=== PATIENT | male | born 1970 | race Caucasian/White ===

== ENCOUNTER 2018-05-17 09:13 | Outpatient (CLI) | payer BC, SELFPAY ==
[2018-05-18 12:06] LABS: FSH 2.1 mIU/ml (1.4-18.1); LH 1.6 mIU/ml (2-9); PSA, Diagnostic 1.7 ng/ml (0-2.5); Prolactin 3.5 ng/ml (2.1-17.7)
[2018-05-19 12:08] LABS: Testosterone, Bioavailable 84 ng/dL (61-213); Testosterone, Total 311 ng/dL (240-950)
== END 2018-05-17 09:33 ==
PROVIDERS: PCP Family Medicine; Visit Provider Urology
DX: E29.1 Testicular hypofunction (principal); R97.20 Elevated prostate specific antigen [PSA]
CPT/HCPCS: 36415; 84403; 84410; 83001; 83002; 84146; 84153

== ENCOUNTER 2018-06-13 08:51 | Outpatient (CLI) | payer BC, SELFPAY ==
[2018-06-13 10:59] LABS: Cholesterol 220 mg/dL (50-200); Glucose 103 mg/dL (70-100); HDL Cholesterol 66 mg/dL (40-60); LDL CHOLESTEROL 139 mg/dL (<100); Triglyceride 59 mg/dL (30-150)
[2018-06-14 18:24] LABS: Tissue Transglutaminase Ab IgA <1.2 U/mL; Tissue Transglutaminase Ab IgG 3.2 U/mL
== END 2018-06-13 09:11 ==
PROVIDERS: PCP Family Medicine; Visit Provider Family Medicine
DX: Z13.220 Encounter for screening for lipoid disorders (principal); R10.9 Unspecified abdominal pain; Z13.1 Encounter for screening for diabetes mellitus
CPT/HCPCS: 36415; 80061; 82947; 83721; 83516

== ENCOUNTER 2018-08-29 01:50 | Outpatient (CLI) | payer BC, SELFPAY ==
[2018-09-01 05:33] LABS: Testosterone, Total 577 ng/dL (240-950)
== END 2018-08-29 02:10 ==
PROVIDERS: Nurse Practitioner Gerontology; PCP Family Medicine; Visit Provider Urology
DX: E29.1 Testicular hypofunction (principal)
CPT/HCPCS: 36415; 84403

== ENCOUNTER 2018-10-26 06:20 | Day surgery (SDC) | payer BC, SELFPAY ==
--- NOTE | 2018-10-26 05:53 | W.PM.ENDDOP ---
Date of service: 10/26/18 Time of Service: 08:37 Endoscopy Report DATE OF PROCEDURE: 10/26/18 PRE-OP DIAGNOSIS: Dyspepsia PROCEDURE: EGD with biopsies SURGEON: Kandi Khan ANESTHESIA: other (General/ ASA 2/Ayesha Schulz, MIYA) ESTIMATED BLOOD LOSS: 5 PATHOLOGY: other (Gastric bx, GE junction bx) COMPLICATIONS: None DISPOSITION: no change INDICATIONS: Mr. Llanos is a 47 year old male who was seen in the office with dyspepsia. Risks, benefits and complications have been reviewed. Complications include but are not limited to bleeding, pain, perforation, sore throat, aspiration, and adverse reaction to the medications. Questions were entertained and answered to their satisfaction and they wished to proceed. No guarantees were given or implied. PROCEDURE START TIME: : PROCEDURE END TIME: : FINDINGS: Moderate inflammation of the stomach irregular Z line with mild inflammation PROCEDURE DESCRIPTION: After informed consent was obtained the patient was take to the procedure room and placed in a supine position. Monitors were applied and a time out was done. The patients name, date of , procedure type, allergies to medications and metal in their body was reviewed. A bite block was placed and the patient was sedated. Once sedated and comfortable the gastroscope was advanced through the oropharynx which was grossly normal into the esophagus. The proximal and mid-esophagus were normal. In the distal esophagus there was mild inflammation noted. The scope was advanced into the stomach and through the pylorus into the 3rd portion of the duodenum. The duodenum was noted to be normal. The scope was retracted back into the stomach and biopsies were done to rule out H. pylori. There were no ulcers. The scope was retroflexed. The cardia and fundus were noted to be normal. There was no hiatal hernia noted. The scope was retracted back into the esophagus and biopsies were done of the GE junction to rule out Linares's. The Z line was irregular. The GE junction was at 38 cm. The scope was removed and the patient was woken up and taken back to [facility] in stable condition. Follow up: 2-3 weeks
--- NOTE | 2018-10-26 05:55 | PDOC.DSDIS_ITS ---
Discharge Plan Disposition Patient Disposition: HOME Condition: Good Discharge Details Reason For Visit: Dyspepsia Attending Provider: Kandi Khan Primary Care Provider: Danyel Hammond Home Meds and New Rx's Prescriptions: New ranitidine HCl [Zantac] 150 mg tablet 300 mg PO QHS Qty: 60 RF: 0 Continued turmeric 400 mg capsule 400 mg PO RF: 0 testosterone 20.25 mg/1.25 gram (1.62 %) gel in metered-dose pump 2 pump TP DAILY Qty: 75 RF: 5 vardenafil [Levitra] 2.5 mg tablet 2.5 mg PO ONCE PRN (Reason: sexual activity) Qty: 10 RF: 0 calcium carbonate-vitamin D3 [Calcium 600 + D(3)] 1 EACH tablet 2 ea PO DAILY RF: 0 omeprazole 40 MG capsule,delayed release(DR/EC) 40 mg PO DAILY Qty: 90 RF: 3 Discharge Instructions Instructions: Upper Endoscopy (DC), Diet for Stomach Ulcers and Gastritis (GEN), Gastritis (DC), Gastroesophageal Reflux Disease (DC) Additional Instructions: Findings: moderate inflammation of the stomach mild inflammation of the esophagus Follow up: 11/18/18 at 8 am Please call if you develop: fevers >101.5 Nausea or Vomiting Abdominal pain that is not transient DAY SURGERY UNIT POST COLONOSCOPY INSTRUCTIONS 1. Because there will be medication in your system for the next 24 hours, you may feel a little sleepy. Your coordination will be affected. Therefore: a. Do not drive or operate dangerous equipment for 24 hours. b. Do not drink alcohol beverages for 24 hours (not even beer). c. Plan to go home and rest for the day. 2. Generally there are no restrictions on your activity after a day or so has gone by, but you may feel a bit fatigued for a few days. 3 After you arrive home you may have a light meal and return to a normal diet as you can tolerate it without feeling sick to your stomach. 4. After surgery, you may feel pain or discomfort. This should be only transient, but if it persists please contact your doctor. 5. If there are any questions regarding the findings of your procedure, please feel free to contact your doctor. 6. If you are unable to contact your doctor with a problem, contact the hospital at [phone]. 7. Continue all your regular medications unless directed otherwise. I understand the above instructions and have no questions. Signature of Patient or Responsible Adult Escort Date/Time Name of Responsible Adult Escort Signature of Nurse Date/Time Referrals: Kandi Khan MD [ [facility] STAFF PHYSICIAN] - 11/18/18 8:00 am Activity:: Activity as Tolerated Diet:: low acid diet Discharge Orders Discharge Orders: Discharge Order (Routine); Ordered 10/26/18 Ordered By: Kandi Khan DS: Diagnosis Discharge Diagnosis (1) H/O esophagogastroduodenoscopy: Status: Chronic (2) Gastritis: Status: Acute (3) Reflux esophagitis: Status: Acute
[2018-10-26 06:27] VITALS: BP 139/89; PULSE 75; RESP 18; TEMP 36.4; O2SAT 97
[2018-10-26] MEDS: Lactated Ringers 1,000 ML 80 ML IV (06:52)
[2018-10-26] MEDS: Lidocaine 2% Viscous 15 ML CUP (08:30)
--- NOTE | 2018-10-26 08:39 | STOM_PTH ---
PATIENT: Cody Llanos LOC: [facility] U#:[id number] AGE/SX: 47/M ROOM: RE10/26/[address]: Kandi Khan MD : 1970 BED: DIS: 10/26/2018 SPEC #: [id number] RECD: 10/26/18 12:55 STATUS: BROWN RE #: [id number] EDUARD: 10/26/18 08:[address]: Kandi Khan DEPT: Surgical Specimen RECD BY: Jerilyn Miller ENTERED: 10/26/18 12:56 SP TYPE: STOMACH OTHR DR: Danyel Hammond MD Tissues: 1 - STOMACH BIOPSY 2 - ESOPHAGUS BIOPSY Procedures: GROSS AND MICRO LEVEL 4 Comments: [id number]
[2018-10-26 09:40] VITALS: BP 126/85; PULSE 70; RESP 16; TEMP 36.4; O2SAT 96
== END 2018-10-26 09:55 | disposition home or self-care (01) ==
LOC: SUR 08:17
PROVIDERS: PCP Family Medicine; Visit Provider Surgery
PROC: 0DJ68ZZ Inspection of Stomach, Via Natural or Artificial Opening Endoscopic (ICD-10-PCS; CPT 43235; principal; 2018-10-26 07:30)
DX: R10.13 Epigastric pain (principal); K21.0 Gastro-esophageal reflux disease with esophagitis; K29.70 Gastritis, unspecified, without bleeding
CPT/HCPCS: 43239; 88305

== ENCOUNTER 2018-12-23 09:00 | Outpatient (CLI) | payer BC, SELFPAY ==
[2018-12-23 12:51] LABS: HCT 44.6 % (40.0-50.0); HGB 15.2 g/dL (13.5-17.5); Mean Corp. HGB Concentration 34.1 g/dL (32.0-36.0); Mean Corpuscular Hemoglobin 31.3 pg (27.0-33.0); Mean Corpuscular Volume 91.8 fL (80-95); Mean Platelet Volume 9.3 fL (8.0-11.0); Platelet Count 290 x1000/uL (130-400); RBC 4.86 m/cumm (4.50-6.00); RBC Distribution Width 12.4 % (11.8-14.1); White Blood Cell Count 6.78 k/cumm (4.4-10.8)
[2018-12-23 13:28] LABS: ALT 39 U/L (12-78); AST 26 U/L (15-37); Albumin 4.3 g/dL (3.4-5.0); Alkaline Phosphatase 70 U/L (46-116); Bilirubin, Direct 0.17 mg/dL (0.00-0.20); Bilirubin, Total 0.7 mg/dL (0.2-1.0); Total Protein 7.5 g/dL (6.4-8.2)
[2018-12-29 03:37] LABS: Testosterone, Bioavailable 100 ng/dL (61-213); Testosterone, Total 346 ng/dL (240-950)
== END 2018-12-23 09:20 ==
PROVIDERS: Urology; PCP Family Medicine; Visit Provider Family Medicine
DX: E29.1 Testicular hypofunction (principal)
CPT/HCPCS: 36415; 80076; 84403; 84410; 85027

== ENCOUNTER 2019-01-27 02:04 | Outpatient (CLI) | payer BC, SELFPAY ==
[2019-01-30 12:57] LABS: Testosterone, Total 281 ng/dL (240-950)
== END 2019-01-27 02:24 ==
PROVIDERS: PCP Family Medicine; Visit Provider Urology
DX: E29.1 Testicular hypofunction (principal)
CPT/HCPCS: 36415; 84403

== ENCOUNTER 2020-10-05 11:29 | Inpatient (IN) | payer OTHER, BC, SELFPAY ==
[2020-10-05] VITALS (34 sets, daily range): BP systolic 127–162; BP diastolic 75–99; PULSE 71–102; RESP 9–28; TEMP 36.4–37.1; O2SAT 91–99
--- NOTE | 2020-10-05 11:30 | DI.RAD_ITS ---
EXAM: XR TIB/FIB RT and XR ankle RT complete CLINICAL HISTORY: pain s/p fall. TECHNIQUE: 2D digital imaging was performed. COMPARISON: No previous for comparison. FINDINGS: BONES: There is an acute spiral fracture at the distal metadiaphyseal junction of the right tibia. T here is posterior and lateral displacement of the distal fracture 1 shaft's width. There is a commin uted fracture involving the distal metaphysis of the right fibula. The fracture extends to the level of the ankle joint. There is mild displacement of the fracture noted. No other acute fracture or d islocation is present. Visualized portion of the knee is unremarkable. SOFT TISSUE: There is soft tissue swelling of the distal leg and ankle. IMPRESSION: 1. Fractures involving the distal right tibia and fibula as described above. DATA REPOSITORY: RADIATION DOSE DELIVERED:
--- NOTE | 2020-10-05 11:37 | ED.GENADUL_ITS ---
Discharge Plan Disposition Patient Disposition: [facility] INPATIENT Condition: Stable Discharge Details Chief Complaint: Orthopedic Clinical Impression: Closed right tibial fracture Primary Care Provider: Danyel Hammond ED Provider: Dilip Schuler Home Meds and New Rx's Prescriptions: No Action turmeric 400 mg capsule 400 mg PO DAILY RF: 0 sildenafil (pulm.hypertension) 20 mg tablet 20 - 100 mg PO DAILY PRN Qty: 30 RF: 8 calcium carbonate-vitamin D3 [Calcium 600 + D(3)] 1 EACH tablet 2 ea PO DAILY RF: 0 testosterone 30 mg/actuation (1.5 mL) solution in metered pump w/johan 2 pump TP DAILY Qty: 90 RF: 2 paroxetine HCl 20 mg tablet 20 mg PO DAILY Qty: 90 RF: 3 cyanocobalamin (vitamin B-12) [Vitamin B-12] 250 mcg Tablet DAILY RF: 0 Medical Decision Making 49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 Denies hitting head and only has pain in the right ankle. No headache, neck pain, chest pain or abdominal pain. No pain in the hip or knee. He has swelling of the right ankle with pain in all areas of the ankle, no pain in the foot, no tenderness over metatarsals, normal sensation and pulses. Suspect fracture will obtain xrays. STates it was purely mechanical fall from the ice and had no preceding symptoms to suggest presyncope/syncope xray show sprial fracture of distal tibia, Dr. Bentley reviewed images and plan to admit for operative repair Differential Diagnosis Differential Diagnosis: fracture, dislocation, sprain Imaging Data Radiologic Study: Attestation: I personally reviewed and interpreted this imaging study as follows: Imaging: X-Ray Radiologist's impression: PROCEDURE INFORMATION: Exam: XR Right Ankle Exam date and time: 10/05/2020 11:37 AM Age: 49 years old Clinical indication: Pain; Ankle; Right; Patient HX: Fall on ice. TECHNIQUE: Imaging protocol: XR Right ankle. Views: 3 or more views. COMPARISON: No relevant prior studies available. FINDINGS: Bones/joints: Comminuted mildly displaced fracture distal metaphysis of right fibula, extending to the articular surface. Displaced spiral fracture of the distal metaphysis of the right tibia. Anterior displacement of the proximal shaft fragment. Soft tissues: Soft tissue swelling IMPRESSION: 1. Displaced spiral fracture distal metaphysis of the right tibia and comminuted displaced intraarticular fracture distal right fibula Radiologic Study #2: Attestation: I personally reviewed and interpreted this imaging study as follows: Imaging: X-Ray Radiologist's impression: PROCEDURE INFORMATION: Exam: XR Right Tibia and Fibula Exam date and time: 10/05/2020 11:37 AM Age: 49 years old Clinical indication: Pain; Ankle and lower leg; Right; Patient HX: Fall on ice TECHNIQUE: Imaging protocol: XR Right tibia and fibula. Views: 2 views. COMPARISON: No relevant prior studies available. FINDINGS: Bones/joints: Displaced spiral fracture distal metaphysis of the right tibia. The proximal shaft fragment is displaced anteriorly. Comminuted mildly displaced intra-articular fracture distal right fibula. Soft tissues: Normal. IMPRESSION: Displaced spiral fracture distal metaphysis of the right tibia. The proximal shaft fragment is displaced anteriorly. Comminuted mildly displaced intra-articular fracture distal right fibula. HPI General Mode of arrival: EMS . Date/Time Provider Initiated Documentation: 10/05/20 11:32 . Limitations to Documentation: no limitations . Information obtained by: patient . History of Present Illness 49 year old M presents to the emergency department with the chief complaint of right ankle pain, described as moderate, and it has been constant. Rest improves symptom(s), Movement worsens symptoms . Patient notes no other symptoms.. Patient did receive the following treatments prior to arrival, other (150mcg iv fentanyl with ems) Related Data Home Medications Medication Instructions Recorded Confirmed calcium carbonate-vitamin D3 2 ea PO DAILY 12/24/17 10/05/20 [Calcium 600 + D(3)] turmeric 400 mg capsule 400 mg PO DAILY cap 10/14/18 10/05/20 sildenafil (pulm.hypertension) 20 20 - 100 mg PO DAILY PRN #30 tab 12/16/18 10/05/20 mg tablet testosterone 30 mg/actuation (1.5 2 pump TP DAILY #90 ml 08/11/19 mL) transderm solution metered pump paroxetine HCl 20 mg tablet 20 mg PO DAILY #90 tab 11/29/19 10/05/20 cyanocobalamin (vitamin B-12) mcg DAILY 10/05/20 [Vitamin B-12] Previous Rx's Medication Instructions Recorded sildenafil (pulm.hypertension) 20 20 - 100 mg PO DAILY PRN #30 tab 12/16/18 mg tablet testosterone 30 mg/actuation (1.5 2 pump TP DAILY #90 ml 08/11/ mL) transderm solution metered pump paroxetine HCl 20 mg tablet 20 mg PO DAILY #90 tab 11/29/19 Allergies Allergy/AdvReac Type Severity Reaction Status Date / Time No Known Allergies Allergy Unverified 12/16/18 08:04 General Stated Complaint: Orthopedic JAYLAN: 3 Review of Systems All systems reviewed & are unremarkable except as noted in HPI and below Constitutional Constitutional: Denies chills, Denies fever(s) and Denies weakness Cardiovascular Cardiovascular: Denies chest pain and Denies dyspnea Respiratory Respiratory: Denies cough and Denies dyspnea Gastrointestinal Gastrointestinal: Denies abdominal pain, Denies nausea and Denies vomiting Musculoskeletal Musculoskeletal: Denies joint swelling Neurologic Neurologic: Denies weakness Psychiatric Psychiatric: Denies depression FORMERLY [facility], [facility]–1983 Medical History Dyspepsia intermittent nausea, epigastric pain Elevated PSA GERD (gastroesophageal reflux disease) Hypogonadism in male Intermittent constipation and diarrhea Psoriasis Surgical History H/O esophagogastroduodenoscopy (~10/26/18) Tonsillectomy Family History Father No problems noted. Sister No problems noted. Maternal Grandfather , AGE 60 Alcohol abuse WITH ALCOHOLIC CIRRHOSIS Paternal Grandfather , AGE 70 Prostate cancer Maternal Grandmother , AGE 70 No problems noted. 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 Pets and animals: Yes Pets and animals: dog(s) Duration: 15-30 minutes/day Frequency: does not exercise Terri/Adventist: No preference Special terri needs: No Do you feel safe at home: Yes Do you feel safe in your relationship?: Yes Exam Const General: no acute distress Orientation: alert HENMT Head: normal to inspection Ears: external ears normal General nose exam: external nose normal Mouth: moist mucous membranes Eyes General: appearance normal, both eyes and all related structures Neck Neck: normal visual inspection Resp Effort & Inspection: normal respiratory effort and able to speak in complete sentences Cardio Rate: regular rate Skin General skin exam: no rashes or lesions noted Neuro General: patient alert and patient oriented x3 Extrem General: capillary refill normal Psych Mental Status: mental status grossly normal Course Vital Signs Vital signs: Vital Signs Temperature 36.7 C 10/05/20 11:25 Pulse 77 10/05/20 11:25 Respiratory Rate 18 10/05/20 11:25 Blood Pressure 162/99 H 10/05/20 11:25 Pulse Oximetry 96 10/05/20 11:25 Temperature 36.7 C 10/05/20 11:25 Temperature Source Skin 10/05/20 11:25 Pulse 77 10/05/20 11:25 Respiratory Rate 18 10/05/20 11:25 Respiratory Effort Non-Labored 10/05/20 11:35 Blood Pressure 162/99 H 10/05/20 11:25 Blood Pressure Position Sitting 10/05/20 11:25 Pulse Oximetry 96 10/05/20 11:25 Oxygen Delivery Method Room Air 10/05/20 11:25 Oxygen Flow Rate 0 10/05/20 11:25 Pain Level 2 10/05/20 11:25
[2020-10-05] MEDS: HYDROmorphone 2 MG/ML VIAL 1 MG IVP (11:44)
--- NOTE | 2020-10-05 11:56 | W.ORTHOCONSU ---
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 He he slipped awkwardly on a slick piece of sidewalk, snow covered on top of ice,. He is not exactly sure but feels that the foot went underneath him that he fell down onto his foot. He had immediate pain and inability to bear weight. He was brought in by EMS. He reports severe, 10 out of 10, pain with any attempted motion of the right leg. He denies any numbness or tingling. He denies any preinjury issues with this right leg. He does think that he may have broken ankle when he was younger like in high school but cannot remember which side. Otherwise, no limitations on a day-to-day basis. Is healthy and denies any significant medical issues. He last ate at 6:45 AM this morning and he had occasional water throughout the morning. Consults Consult date: 10/05/20 Requesting physician: Dilip Schuler Consult Reason Right Leg Injury Assessment and Plan Assessment and plan (1) Fracture of tibial shaft, right, closed: Status: Acute Qualifiers: Encounter type: initial encounter Fracture morphology: transverse Fracture alignment: displaced Qualified Code(s): S82.221A - Displaced transverse fracture of shaft of right tibia, initial encounter for closed fracture (2) Closed fracture of right distal fibula: Status: Acute Assessment and plan: Jay is a 49-year-old who slipped earlier today and suffered a completely displaced distal third tibial shaft fracture with a comminuted distal fibula fracture. There is notable displacement, soft tissue swelling and therefore I would recommend intervention to reduce the fracture. Given the high rates of union earlier function, and decreased malalignment, I recommend operative fixation with an intramedullary nail. The fibula likely does not need to be fixed. However, after fixation of the tibia this would be assessed and possibly fixed with plates and screws of necessary. I reviewed the technical details of the surgery. I discussed the risk of the surgery to include bleeding, infection, pain, stiffness, damage to nerves and vessels, damage to muscle and tendons, malunion, nonunion, hardware prominence, hardware failure, blood clot, need for repeat procedures. Spite these risk, he elects to proceed. He will remain n.p.o. We will call the team and do the case this afternoon. Qualifiers: Encounter type: initial encounter Fracture morphology: other fracture Qualified Code(s): S82.831A - Other fracture of upper and lower end of right fibula, initial encounter for closed fracture Review of Systems All systems reviewed & are unremarkable except as noted in HPI and below PFSH Medical History Dyspepsia intermittent nausea, epigastric pain Elevated PSA GERD (gastroesophageal reflux disease) Hypogonadism in male Intermittent constipation and diarrhea Psoriasis Surgical History H/O esophagogastroduodenoscopy (~10/26/18) Tonsillectomy Family History Father No problems noted. Sister No problems noted. Maternal Grandfather , AGE 60 Alcohol abuse WITH ALCOHOLIC CIRRHOSIS Paternal Grandfather , AGE 70 Prostate cancer Maternal Grandmother , AGE 70 No problems noted. 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 There is also deformity which seems to be palpable over the medial aspect of the tibial crest. There is no ecchymosis. And her compartment is swollen but also compressible. He is able to demonstrate active great toe extension and great toe flexion with no significant increase in pain. Ankle dorsiflexion and plantarflexion is a little bit more limited due to pain. He endorses full sensation over the deep and superficial peroneal nerves and tibial nerve. Palpable DP and PT pulse. No notable swelling about the ankle or the foot. No pain with palpation of the knee. Results Last Vital Signs Temp 36.7 C 10/05/20 11:25 Pulse 77 10/05/20 11:25 Resp 18 10/05/20 11:25 BP 162/99 H 10/05/20 11:25 Pulse Ox 96 10/05/20 11:25 Imaging Imaging Studies: X-ray of the tibia and fibula as well as the ankle was reviewed. This demonstrates a significant displaced distal third tibia fracture. There does not appear to be any extension into the joint. This is likely some rotational given that there is a fibula fracture at the level of the joint, Shepard B. There is some comminution of the fracture but no significant displacement. No tibiotalar displacement. The tibial fracture is 100% displaced posteriorly and shortened.
--- NOTE | 2020-10-05 12:43 | NUR.NOTE ---
Nursing Note: Posterior splint applied to RLE by Joseph.
--- NOTE | 2020-10-05 12:44 | DI.VRAD_ITS ---
PROCEDURE INFORMATION: Exam: XR Right Ankle Exam date and time: 10/05/2020 11:37 AM Age: 49 years old Clinical indication: Pain; Ankle; Right; Patient HX: Fall on ice. TECHNIQUE: Imaging protocol: XR Right ankle. Views: 3 or more views. COMPARISON: No relevant prior studies available. FINDINGS: Bones/joints: Comminuted mildly displaced fracture distal metaphysis of right fibula, extending to the articular surface. Displaced spiral fracture of the distal metaphysis of the right tibia. Anterior displacement of the proximal shaft fragment. Soft tissues: Soft tissue swelling IMPRESSION: 1. Displaced spiral fracture distal metaphysis of the right tibia and comminuted displaced intra-articular fracture distal right fibula Dictated and Authenticated by: Saundra Squires MD. Ordering:GEOVANY Cherry MD
--- NOTE | 2020-10-05 12:44 | NUR.NOTE ---
Nursing Note: PT care received from Danika FORBES at 12:00
--- NOTE | 2020-10-05 12:45 | DI.VRAD_ITS ---
PROCEDURE INFORMATION: Exam: XR Right Tibia and Fibula Exam date and time: 10/05/2020 11:37 AM Age: 49 years old Clinical indication: Pain; Ankle and lower leg; Right; Patient HX: Fall on ice TECHNIQUE: Imaging protocol: XR Right tibia and fibula. Views: 2 views. COMPARISON: No relevant prior studies available. FINDINGS: Bones/joints: Displaced spiral fracture distal metaphysis of the right tibia. The proximal shaft fragment is displaced anteriorly. Comminuted mildly displaced intra-articular fracture distal right fibula. Soft tissues: Normal. IMPRESSION: Displaced spiral fracture distal metaphysis of the right tibia. The proximal shaft fragment is displaced anteriorly. Comminuted mildly displaced intra-articular fracture distal right fibula. Dictated and Authenticated by: Saundra Squires MD. Ordering:GEOVANY Cherry MD
[2020-10-05 12:56] LABS: Source Nasal/Nares
[2020-10-05 13:35] LABS: Abs Immature Grans 0.05 10^3/uL (0.0-0.06); Absolute Basophil Count 0.04 10^3/uL (0.0-0.2); Absolute Monocyte Count 0.53 10^3/uL (0.1-0.8); Absolute Neutrophil Count 10.06 10^3/uL (1.2-6.7); Basophils % 0.3; Eosinophils % 0.2; HCT 41.1 % (40.0-50.0); HGB 13.9 g/dL (13.5-17.5); Immature Grans % 0.4; Lymphocytes % 11.6; MCH 31.4 pg (27.0-33.0); MCHC 33.8 % (32.0-36.0); MPV 8.7 fL (8.0-11.0); Monocytes % 4.4; Neutrophils % 83.1; Nucleated RBC 0 %; Platelet Count 279 10^3/uL (130-400); RBC 4.42 10^6/uL (4.36-5.78); RDW 12.4 % (11.8-14.1); RDW-SD 42.5 fL; WBC 12.11 10^3/uL (4.4-10.8)
[2020-10-05 13:37] LABS: Absolute Eosinophil Count 0.02 10^3/uL (0.0-0.7)
[2020-10-05 13:48] LABS: ALT 45 U/L (16-63); AST 25 U/L (15-37); Alkaline Phosphatase 84 U/L (46-116); Anion Gap 9.2 mmol/L (3-11); BUN 19 mg/dL (7-18); Bilirubin, Total 0.4 mg/dL (0.2-1.0); CO2 26.8 mmol/L (21.0-32.0); Calcium 8.7 mg/dL (8.5-10.1); Chloride 103 mmol/L (98-107); Glucose 126 mg/dL (74-106); Potassium 3.7 mmol/L (3.5-5.1); Sodium 139 mmol/L (136-145); Total Protein 7.5 g/dL (6.4-8.2)
--- NOTE | 2020-10-05 14:00 | DI.RAD_ITS ---
EXAM: XR TIB/FIB RT CLINICAL HISTORY: RIGHT TIBIAL FX TECHNIQUE: 2D and realtime digital imaging was performed. CONTRAST MATERIAL: Refer to procedure report. COMPARISON: No exams were available for comparison FINDINGS: Fluoroscopy was provided for Dr. Bentley during the performance of a reduction and internal fixatio n of the distal tibial fracture. Please refer to the procedure report for complete details. Fluoro time: 108 seconds IMPRESSION: RADIATION DOSE DELIVERED:
[2020-10-05] MEDS: Lactated Ringers 1,000 ML 80 ML IV (14:35)
--- NOTE | 2020-10-05 14:36 | NUR.NOTE ---
Nursing Note: PT taken to [facility] All PT care and information transferred to [facility] nursing staff. PT alert and oriented, vitals stable.
[2020-10-05 14:37] LABS: COVID-19 PCR Negative (Negative)
[2020-10-05] MEDS: ceFAZolin 2 GM/50 ML BAG IVPB (14:38)
[2020-10-05] MEDS: Bupivacaine 0.25% Pres-Free 30 ML VIAL (16:01)
--- NOTE | 2020-10-05 16:33 | ROE_ITS ---
Date of service: 10/05/20 Time of Service: 16:33 Operative Note Operative Note DATE OF PROCEDURE: 10/05/20 PRE-OP DIAGNOSIS: Right Tibia and Fibula Fracture POST-OP DIAGNOSIS: same PROCEDURE: Right Intramedullary Fixation of Tibia Fracture SURGEON: Eric Bentley ADMINISTRATIVE JOB TITLES: Cody Polo ANESTHESIA TYPE: Spinal Refer to Anesthesia Record ESTIMATED BLOOD LOSS: 50 PATHOLOGY: none sent TOURNIQUET TIME: 0 COMPLICATIONS: None Patient was transported to: PACU Patient's condition: stable Implants: Depuy-Synthes Tibial Nail EX 11mm x 360mm Indications: Jay is a 49 year old male who presented to the Emergency Department after 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 X-rays confirmed the diagnosis of a displaced distal 1/3 tibia shaft fracture with comminuted distal fibula fracture of the right side. I reviewed the possible treatment options and given the fracture, I recommended operative fixation. I discussed the technical details of the surgery. I reviewed the risks such as bleeding, infection, pain, stiffness, malunion, nonunion, hardware prominence, hardware faiilure, malrotation, damage to nerves and vessels, blood clot. Despite these risks, he agreed to proceed. Findings: There was a fracture of the tibia which was reduced with traction and internal rotation and external manipulation. This was secured with the IMN and screws. Procedure Description: Jay was greeted in the preoperative area. Consent was previously reviewed and signed. Once in the operating room, anesthesia was administered. The patient was transferred to the fracture table in the supine position. He was positioned in the supine position with the operative side placed onto a bone foam ramp. All bony prominences were well padded. Arms were placed out to the side, padded, and secured. A single dose of TXA, 1 gram, was then administered IV. Prophylactic antibiotics, Cefazolin 2 grams, was given for prophylactic antibiotics. A timeout was performed for safe surgery. The right leg was prepped with Chloraprep. The leg was draped with U drapes and an extremity drape. Reduction maneuver was then performed of the fracture. Gentle traction and some internal rotation was used to grossly reduce the fracture fragments. Focus was made sure to restore normal rotational alignment of the leg and length. A clamp was used to help secure and hold these pieces in appropriate position. An incision was then made over the lateral aspect of the knee. This was taken down from the midpoint of patella at his lateral margin following the lateral aspect of the patellar tendon down to the tibial tubercle. The skin was incised sharply. The retinacular tissues were then incised sharply as well. The synovium underlying this was visualized and bluntly dissected off of the anterior, proximal tibia. The patella was mobilized medially allowing access to the central portion of the proximal tibia. A starting position in line with the axis of the tibia, approximate the level of the lateral spine, and at the ventral edge of the proximal tibia was made with the awl. X-ray in both the AP and lateral views were used to confirm this positioning. The awl was then advanced manually into the proximal tibia. This was once again confirmed to be in good position on the AP and lateral views. The ball-tipped guidewire was then inserted through the awl and into the proximal tibia. A bend in the guidewire was placed prior to insertion allowing it to make the turn off the back of the tibia. The ball-tipped guidewire was then advanced across the fracture site into the distal tibia. It was confirmed to be in appropriate positions on both the AP and the lateral. This was then measured. Using a tissue protector to protect proximal tissues, the tibia was reamed from 8.5 mm to 13mm. The 11mm x 360mm Synthes tibial nail EX was opened. The nail was assembled to the aiming arm on the back table and confirmed to be aligned with the trochars for screw insertion. Using manual force the nail was advanced into the tibia. A few light mallet blows advanced the nail through the proximal tibia and down into the final seated position of the distal tibia, approximately at the level of the physeal scar. AP and lateral x-rays of both the knee and the ankle and the entire tibia was performed. They show appropriate positioning of the tibial nail. Starting distally, perfect circles were obtained for each screw. Distal locking screws were placed from medial to lateral. These were inserted to be bicortical but prominence was attempted to be minimized as much as possible without compromising stability and screw purchase. I also placed one anterior to posterior screw. The tibial nail was back slapped to compress the fracture site . Attention was then turned to the proximal aspect. Through the targeting arm, two 5.0 millimeter screws were placed from medial to lateral. One was placed in the dynamic hole and the other was placed in the static hole. These were placed without difficulty and once again were ensured to be bicortical. The targeting device was removed. AP and lateral x-rays of were taken of the tibia and fibula. The fracture site is once again investigated and showed to be well aligned as was the overall alignment of the leg. The deep tissues and superficial tissues of the leg and the incision sites were injected with a mixture of 50 cc of 0.25% bupivacaine. The wounds were thoroughly irrigated. The retinaculum of the knee was reapproximated with a running #1 Vicryl. The deep tissue was closed with a 2-0 Vicryl followed by running 3-0 Monocryl. The smaller wounds for screw placement were closed with Vicryl and Monocryl in a similar fashion. Mepilex dressing was placed over the knee wound. Steri-strips and gauze was placed over the remaining wounds. A short posterior leg splint was applied. At the end of the case, all counts were correct. Jay tolerated the procedure well without known complication and was taken to the PACU for recovery. He was straight cathed prior to leaving the OR. Physical therapy will start post- operatively, nonweightbearing for the first 2 weeks with assistive devices. Anticoagulation will start within 12-24 hours. 3 doses of post-operative antibiotics for prophylaxis will be administered.
[2020-10-05] MEDS: Acetaminophen 500 MG TAB 1000 MG PO (19:59)
[2020-10-05] MEDS: Ketorolac 15 MG/ML VIAL IV (22:48)
[2020-10-05] MEDS: Normal Saline Flush 10 ML SYR IVP (22:48)
[2020-10-05] MEDS: ceFAZolin 1 GM/50 ML BAG IVPB (22:49)
[2020-10-06] MEDS: Lactated Ringers 1,000 ML 80 ML IV (00:48)
[2020-10-06 03:25] VITALS: BP 124/84; PULSE 69; RESP 17; TEMP 36.6; O2SAT 97
[2020-10-06] MEDS: Normal Saline Flush 10 ML SYR IVP (04:00)
[2020-10-06] MEDS: Ketorolac 15 MG/ML VIAL IV ×2 (04:00→10:16)
--- NOTE | 2020-10-06 06:32 | W.PM.DS.N ---
Date of service: 10/06/20 Time of Service: 09:02 DS: Diagnosis Discharge Diagnosis (1) Fracture of tibial shaft, right, closed: Status: Acute (2) Closed fracture of right distal fibula: Status: Acute Discharge Plan Disposition Patient Disposition: HOME Condition: Stable Discharge Details Reason For Visit: RIGHT TIBIA FRACTURE Admit Date/Time: 10/05/20 17:14 Admit Provider: Eric Bentley Attending Provider: Eric Bentley Primary Care Provider: Danyel Hammond Hospital Course Hospital Course: Jay was seen in the Emergency Department and diagnosed witha displaced distal right tibia fracture and fibula fracture. He was taken to the OR from the ED for surgical fixation. He tolerated the surgery well without any notable medical, surgical, or anesthetic complications. He was admitted to the medical/surgical floor for post-operative management including pain control and physical therapy. He did well during his admission: pain was controlled with oral agents, able to mobilize with PT and nursing, and voiding spontaneously. No actue medical concerns. On POD#1 he was deemed safe for discharge to home. Home Meds and New Rx's Prescriptions: New acetaminophen 500 mg tablet 1,000 mg PO Q8H PRN (Reason: pain) Qty: 90 RF: 3 aspirin 81 mg tablet,delayed release (DR/EC) 81 mg PO BID Qty: 60 RF: 0 pantoprazole 40 mg tablet,delayed release (DR/EC) 40 mg PO DAILY Qty: 30 RF: 0 oxycodone 5 mg tablet 5 mg PO Q4H Qty: 10 RF: 0 naproxen sodium 550 mg tablet 550 mg PO BID PRNQty: 60 RF: 0 Continued turmeric 400 mg capsule 400 mg PO DAILY RF: 0 sildenafil (pulm.hypertension) 20 mg tablet 20 - 100 mg PO DAILY PRN Qty: 30 RF: 8 calcium carbonate-vitamin D3 [Calcium 600 + D(3)] 1 EACH tablet 2 ea PO DAILY RF: 0 paroxetine HCl 20 mg tablet 20 mg PO DAILY Qty: 90 RF: 3 cyanocobalamin (vitamin B-12) [Vitamin B-12] 250 mcg Tablet DAILY RF: 0 Discharge Instructions Additional Instructions: Activity: You are NON WEIGHT BEARING on the right leg. You should keep the leg elevated as much as possible. You may wiggle your toes and move your hip and knee. You may find that knee range of motion is difficult at first. You may slowly work on range of motion of the knee but this may take a little time. Dressings: You should keep your splint clean and dry. Do NOT get wet or dirty. If you have issues with your splint, please call the office at [phone] Bentley's cell at [phone]. Medications: - You should take Tylenol and Naproxen around the clock for baseline pain. - You have been prescribed a stronger narcotic, Oxycodone, for breakthrough pain. - You should take a Baby Aspirin (81mg) twice a day for blood clot prevention. Follow-up: 2 weeks Referrals: Eric Bentley MD [ [facility] STAFF PHYSICIAN] - Activity:: Non weight bearing - RLE Equipment/Supplies:: Crutches Diet:: As Tolerated Discharge Orders Discharge Orders: Discharge Order (Routine); Ordered 10/06/20 Ordered By: Eric Bentley DS: Summary Time Spent with Patient providing and/or coordinating discharge services: Less than 30 minutes Status at Discharge Functional status at discharge: uses cane/walker Overall status at discharge: patient is progressing back to baseline Mental Status: mental status grossly normal Speech and Movement: speech and movement normal Mood: congruent mood Affect: normal affect Exam Psych Mental Status: mental status grossly normal Speech and Movement: speech and movement normal Mood: congruent mood Affect: normal affect DS: Data Vitals/I&O Vitals and I&O: Vital Signs Temperature 36.6 C 10/06/20 03:25 Temperature Source Skin 10/06/20 03:25 Pulse 69 10/06/20 03:25 Pulse Rhythm Regular 10/06/20 05:30 Pulse 86 10/05/20 14:20 Respiratory Rate 17 10/06/20 03:25 Respiratory Effort Non-Labored 10/06/20 05:30 Respiratory Depth Normal 10/06/20 05:30 Respiratory Pattern Normal 10/06/20 05:30 Blood Pressure 124/84 10/06/20 03:25 Blood Pressure Mean 91 10/05/20 14:16 Blood Pressure Position Sitting 10/05/20 11:25 Pulse Oximetry 97 10/06/20 03:25 Oxygen Delivery Method Room Air 10/06/20 03:25 Oxygen Flow Rate 0 10/06/20 03:25 Pain Level 0 10/06/20 04:00 Intake & Output 10/05/20 10/05/20 10/06/20 11:59 23:59 11:59 Intake Total 940 / 940 653.333 / 653.333 Output Total 1050 / 1050 500 / 500 Balance -110 / -110 153.333 / 153.333 Weight 81.647 kg Intake: IV 460 / 460 653.333 / 653.333 Oral 480 / 480 Output: Urine 1050 / 1050 500 / 500 Other: Urine Color Yellow Yellow Urine Appearance Clear Clear Urine Odor Normal Normal Emesis Description None Voiding Methods Urinal Urinal Data Completed and Pending Labs on day of discharge: Labs from last 24 hours 10/05/20 10/05/20 10/05/20 13:15 13:15 12:50 WBC 12.11 H RBC 4.42 Hgb 13.9 Hct 41.1 MCV 93.0 MCH 31.4 MCHC 33.8 RDW 12.4 Plt Count 279 MPV 8.7 Immature Gran % 0.4 Neutrophils % 83.1 Lymphocytes % 11.6 Monocytes % 4.4 Eosinophils % 0.2 Basophils % 0.3 Nucleated RBC % 0 Absolute Neutrophils 10.06 H Absolute Lymphocytes 1.40 Absolute Monocytes 0.53 Absolute Eosinophils 0.02 Absolute Basophils 0.04 Sodium 139 Potassium 3.7 Chloride 103 Carbon Dioxide 26.8 Anion Gap 9.2 BUN 19 H Creatinine 1.0 Estimated GFR/1.73 m2 >= 60.00 Glucose 126 H Calcium 8.7 Total Bilirubin 0.4 AST 25 ALT 45 Alkaline Phosphatase 84 Total Protein 7.5 Albumin 4.0 COVID-19 Source Nasal/nares SARS-CoV-2 (PCR) Negative [facility] Medical History (Updated 10/06/20 @ 06:33 by Eric Bentley MD) Dyspepsia intermittent nausea, epigastric pain Elevated PSA GERD (gastroesophageal reflux disease) Hypogonadism in male Intermittent constipation and diarrhea Psoriasis Surgical History (Updated 10/06/20 @ 06:33 by Eric Bentley MD) H/O esophagogastroduodenoscopy (~10/26/18) Status post tonsillectomy Tonsillectomy Family History Father No problems noted. Sister No problems noted. Maternal Grandfather , AGE 60 Alcohol abuse WITH ALCOHOLIC CIRRHOSIS Paternal Grandfather , AGE 70 Prostate cancer Maternal Grandmother , AGE 70 No problems noted. Paternal Grandmother Colon cancer Mother , Pneumonia Autoimmune disease Social History Smoking/Tobacco Use Status: Never Smoking risk assessment performed?: Yes Alcohol Intake: current Alcohol Intake frequency: a few times a week Alcohol type: beer, wine and hard liquor Drug use: Never Substance use type: does not use Household members: other Details: 3 current occupation: [employer] OPERATOR Pets and animals: Yes Pets and animals: dog(s) Duration: 15-30 minutes/day Frequency: does not exercise Terri/Temple: No preference Special terri needs: No Do you feel safe at home: Yes Do you feel safe in your relationship?: Yes
[2020-10-06] MEDS: Enoxaparin 40 MG/0.4 ML SYR SC (08:25)
[2020-10-06] MEDS: ceFAZolin 1 GM/50 ML BAG IVPB (08:25)
[2020-10-06] MEDS: Acetaminophen 500 MG TAB 1000 MG PO (08:27)
[2020-10-06 08:31] VITALS: BP 139/85; PULSE 96; RESP 18; TEMP 37.6; O2SAT 99
--- NOTE | 2020-10-06 09:28 | PT.INIE ---
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 He reports that he slipped and twisted his ankle. Had immediate pain and sought consultation via the ED. Surgery was performed yesterday via Dr Bentley IMN fixation of the R tibia fracture yesterday. PMHX: Dyspepsia intermittent nausea, epigastric pain Elevated PSA GERD (gastroesophageal reflux disease) Hypogonadism in male Intermittent constipation and diarrhea Psoriasis Surgical History H/O esophagogastroduodenoscopy (~10/26/18) Tonsillectomy Social History/Home Situation: Jay lives at home with his . He reports prior to this fall he was I at baseline. 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 He reports he has one step to enter his home and does have a flight of stairs to climb to the bedroom. He has utilized crutches in the past and has a pair at home. He also believes that he has a walker available for use as well. Current Functional Limitations: NWB R LE Equipment Owned/DME: Crutches Subjective: Jay reports little to no pain at time of initial consult. Objective: General Observation: IV left UE, surgical dressing/splint right LE Mental Status: Alert and oriented x3. Very pleasant Pain: 1-2/10 on VAS ROM: Right Upper Extremity: Demonstrates full AROM R UE Left Upper Extremity: Demonstrates full AROM L UE Right Lower Extremity: Demonstrates full hip AROM. Knee flexion tolerable to 110 degrees with noted stiffness. Full extension. Ankle N/A due to splint/surgical dressing Left Lower Extremity: Demonstrates full AROM L LE Strength: Right Upper Extremity: Demonstrates 5/5 R UE strength Left Upper Extremity: Demonstrates 5/5 L UE strength Right Lower Extremity: Hip flexion 5/5, knee extension 4+/5, knee flexion 5/5, ankle N/A Left Lower Extremity: Demonstrates 5/5 L LE strength Bed Mobility/Transfers: Supine-sit: Independent with min A of R LE lowering Sit-supine: Independent with min A of R LE Stand-sit: S with use of FWW Sit-stand: Independent Gait: CGA with use of FWW NWB R LE 25 ft x2. Balance: Static Sitting: Normal Dynamic Sitting: Normal Static Standing: Good Dynamic Standing: Fair Special Tests: Mobility Limitations Standardized Measure [facility] AM-PAC 6 clicks Basic Mobility Inpatient Short Form: Raw Score: 21 CMS Score: 28% Informed Consent/Education: Patient instructed in purpose of PT consult and plan of care. Educated in proper adjustment of crutch height at home. Educated in proper gait mechanics with use of FWW and with crutches step to fashion. Educated in proper stair negotiation with crutch usage. Assessment: Patient is a 49 year old male referred to physical therapy services with the diagnosis of s/p IMN fixation of right tibia fracture. Patient presents with clinical signs and symptoms consistent with diagnosis, as demonstrated by the following impairment level findings: impaired joint mobility, motor function R LE NWB R LE s/p internal fixation. Impairments are contributing to the following functional limitations: Impaired gait and balance due to NWB R LE, decreased functional mobility Patient is assessed as a Low [id number] complexity based on the following: History: As Above Examination: As Above Presentation: Stable Decision Making: Low Plan of Care/Treatment Plan: Jay will be discharged per MD order home. He will continue NWB R LE per MD order. Feel that a walker might be beneficial as well at home robert if let alone to assist in carrying items. DISCHARGE RECOMMENDATIONS: Patient may need FWW, unsure if they still have a family member with one TREATMENT CODE/[id number] 25 minutes DEON Lozano [facility] Disclaimer: This note was created using Victorious voice recognition software. It was reviewed for major content. However, there may be multiple small discrepancies and errors due to the voice recognition aspects of the software.
== END 2020-10-06 10:45 | disposition home or self-care (01) | DRG 494 ==
LOC: ER 13:14 → SUR 14:28 → MS 18:14 → ER 10-07 09:05 → SUR 10-07 09:05 → MS 10-07 09:11
PROVIDERS: Admitting Provider Student in an Organized Health Care Education/Training Program; Emergency Provider Emergency Medicine; PCP Family Medicine; Visit Provider Student in an Organized Health Care Education/Training Program
PROC: 0QSG06Z Reposition Right Tibia with Intramedullary Internal Fixation Device, Open Approach (ICD-10-PCS; CPT 27759; principal; 2020-10-05 14:35)
DX: S82.221A Displaced transverse fracture of shaft of right tibia, initial encounter for closed fracture (principal); S82.831A Other fracture of upper and lower end of right fibula, initial encounter for closed fracture; W00.0XXA Fall on same level due to ice and snow, initial encounter; Y93.01 Activity, walking, marching and hiking; Y92.480 Sidewalk as the place of occurrence of the external cause; Y99.0 Civilian activity done for income or pay; K21.9 Gastro-esophageal reflux disease without esophagitis; L40.9 Psoriasis, unspecified; K59.09 Other constipation; R19.7 Diarrhea, unspecified
CPT/HCPCS: 27759; 29515; 36415; 80053; 96374; 96375; 97161; 99253; 99285; J1650; NC; 73590; 73610; 85025; J0690; J1885; J2001; J2250; J2405

== ENCOUNTER 2020-10-21 11:50 | Outpatient (CLI) | payer OTHER, BC, SELFPAY ==
--- NOTE | 2020-10-21 09:45 | DI.RAD_ITS ---
EXAM: XR TIB/FIB RT CLINICAL HISTORY: post op. TECHNIQUE: 2D digital imaging was performed. COMPARISON: CR,XR XR TIB/FIB RT from 10/05/2020 FINDINGS: There has been interval placement of a long intramedullary lisbeth transfixing the fracture in the distal 3rd of the tibia. This is secured by screws proximally and distally and alignment appears satisfact ory. Previously described fracture in the distal fibula is again noted, appearing unchanged. There is no fracture of the proximal fibula. IMPRESSION: DATA REPOSITORY: RADIATION DOSE DELIVERED:
== END 2020-10-21 11:51 | disposition home or self-care (01) ==
LOC: DIORS 11:51
PROVIDERS: PCP Family Medicine; Referring Provider Family Medicine; Visit Provider Physician Assistant Surgical
DX: S82.491A Other fracture of shaft of right fibula, initial encounter for closed fracture (principal); S82.391A Other fracture of lower end of right tibia, initial encounter for closed fracture
CPT/HCPCS: 73590

== ENCOUNTER 2020-11-18 10:02 | Outpatient (CLI) | payer OTHER, BC, SELFPAY ==
--- NOTE | 2020-11-18 09:30 | DI.RAD_ITS ---
EXAM: XR TIB/FIB RT CLINICAL HISTORY: post op ORIF. TECHNIQUE: 2D digital imaging was performed. COMPARISON: CR XR TIB/FIB RT from 10/21/2020 FINDINGS: Long intramedullary lisbeth in the tibia is again noted transfixing the fracture at the junction of the m id-distal 3rd. Fracture lines are still evident but in satisfactory alignment. The previously descr ibed adjacent fracture in the distal fibula is also unchanged with fracture line still evident. Ther e is no radiographic evidence of osteomyelitis. Sign IMPRESSION: DATA REPOSITORY: RADIATION DOSE DELIVERED:
== END 2020-11-18 10:03 | disposition home or self-care (01) ==
LOC: DIORS 10:03
PROVIDERS: PCP Family Medicine; Referring Provider Family Medicine; Visit Provider Physician Assistant
DX: S82.291A Other fracture of shaft of right tibia, initial encounter for closed fracture (principal); S82.491A Other fracture of shaft of right fibula, initial encounter for closed fracture
CPT/HCPCS: 73590

== ENCOUNTER 2020-12-30 10:59 | Outpatient (CLI) | payer OTHER, BC, SELFPAY ==
--- NOTE | 2020-12-30 10:00 | DI.RAD_ITS ---
Exam(s) XR TIB/FIB RT EXAM: XR TIB/FIB RT CLINICAL HISTORY: f/u R tibia IMN. TECHNIQUE: 2D digital imaging was performed. COMPARISON: CR XR TIB/FIB RT from 11/18/2020 FINDINGS: Again noted is a long intramedullary lisbeth in the tibia and there has been some callus formation around fracture site in the distal tibia. Fracture lines are still evident. No radiographic evidence of o steomyelitis. The fracture in the distal fibula appears unchanged. IMPRESSION: DATA REPOSITORY: RADIATION DOSE DELIVERED:
== END 2020-12-30 11:00 | disposition home or self-care (01) ==
LOC: DIORS 11:00
PROVIDERS: PCP Family Medicine; Referring Provider Family Medicine; Visit Provider Student in an Organized Health Care Education/Training Program
DX: S82.221D Displaced transverse fracture of shaft of right tibia, subsequent encounter for closed fracture with routine healing (principal); S82.831D Other fracture of upper and lower end of right fibula, subsequent encounter for closed fracture with routine healing
CPT/HCPCS: 73590

== ENCOUNTER 2021-02-11 08:57 | Outpatient (CLI) | payer BC, SELFPAY ==
[2021-02-11 14:04] LABS: Calculated LDL 113 mg/dL (<100); Cholesterol 169 mg/dL (<200); Glucose 99 mg/dL (74-106); HDL Cholesterol 46 mg/dL (40-60); Triglyceride 50 mg/dL (<150)
== END 2021-02-11 08:58 | disposition home or self-care (01) ==
LOC: LOS 08:57
PROVIDERS: PCP Family Medicine; Visit Provider Family Medicine
DX: E78.5 Hyperlipidemia, unspecified (principal); R73.9 Hyperglycemia, unspecified
CPT/HCPCS: 36415; 80061; 82947

== ENCOUNTER 2021-02-14 09:21 | Outpatient (CLI) | payer OTHER, SELFPAY ==
--- NOTE | 2021-02-14 07:45 | DI.RAD_ITS ---
Exam(s) XR TIB/FIB RT EXAM: XR TIB/FIB RT INDICATION: ORIF R tibia. COMPARISON: CR XR TIB/FIB RT from 12/30/2020 TECHNIQUE: 2D digital imaging was performed. FINDINGS: An intramedullary lisbeth is again noted through the tibia. There has been no change in hardware or fra cture alignment. There has been continued interval healing of the distal tibial fibular fractures. The knee is unremarkable. DATA REPOSITORY: RADIATION DOSE DELIVERED:
== END 2021-02-14 09:22 | disposition home or self-care (01) ==
LOC: DIORS 09:22
PROVIDERS: PCP Family Medicine; Referring Provider Family Medicine; Visit Provider Physician Assistant
DX: S82.221A Displaced transverse fracture of shaft of right tibia, initial encounter for closed fracture (principal); S82.831A Other fracture of upper and lower end of right fibula, initial encounter for closed fracture; X58.XXXD Exposure to other specified factors, subsequent encounter
CPT/HCPCS: 73590

== ENCOUNTER 2021-04-25 09:36 | Outpatient (CLI) | payer OTHER, BC, SELFPAY ==
--- NOTE | 2021-04-25 08:00 | DI.RAD_ITS ---
Exam(s) XR TIB/FIB RT EXAM: XR TIB/FIB RT INDICATION: follow up. COMPARISON: CR XR TIB/FIB RT from 02/14/2021 TECHNIQUE: 2D digital imaging was performed. FINDINGS: An intramedullary lisbeth is again noted through the tibia for fracture fixation. There has been continu ed interval healing of the distal tibia are and fibular fractures. No new abnormalities are seen. T he knee and ankle are unremarkable visualized DATA REPOSITORY: RADIATION DOSE DELIVERED:
== END 2021-04-25 09:37 | disposition home or self-care (01) ==
LOC: DIORS 09:37
PROVIDERS: PCP Family Medicine; Referring Provider Family Medicine; Visit Provider Physician Assistant Surgical
DX: S82.221D Displaced transverse fracture of shaft of right tibia, subsequent encounter for closed fracture with routine healing (principal); S82.831D Other fracture of upper and lower end of right fibula, subsequent encounter for closed fracture with routine healing; X58.XXXD Exposure to other specified factors, subsequent encounter
CPT/HCPCS: 73590

== ENCOUNTER → 2022-02-19 01:28 | Outpatient (CLI) | payer BC, SELFPAY ==
--- NOTE | 2022-02-19 07:30 | DI.RAD_ITS ---
Exam(s) XR SACROILIAC JOINTS EXAM: XR SACROILIAC JOINTS CLINICAL HISTORY: chronic low back pain,SACROILITIS,M46.1. TECHNIQUE: 2D digital imaging was performed. Three images were obtained. COMPARISON: No exams were available for comparison FINDINGS: Bones: No fracture is present. No bony destructive lesion is seen. Alignment is satisfactory. SI Joint:No fusion, erosions or sclerosis is seen. Soft Tissue: Normal. IMPRESSION: Normal radiographs of the SI Joints. DATA REPOSITORY: RADIATION DOSE DELIVERED:
--- NOTE | 2022-02-19 07:30 | DI.RAD_ITS ---
Exam(s) XR LUMBAR SPINE COMPLETE EXAM: XR LUMBAR SPINE COMPLETE CLINICAL HISTORY: low back pain chronically; hx of psoriasis,M54.9. TECHNIQUE: 2D digital imaging was performed of the lumbar spine. Six images were obtained. AP, lat eral, right oblique, left oblique and L5-S1 spot views were obtained. COMPARISON: No exams were available for comparison FINDINGS: BONES: No fracture or destructive lesion. Vertebral bodies are unremarkable. Small endplate osteophy jaleel are seen in the lumbar spine. No facet hypertrophy identified. DISKS: Intervertebral disc spaces are maintained. ALIGNMENT: Lumbar spinal alignment is within normal limits. No spondylolysis or spondylolisthesis. SOFT TISSUE: Normal. IMPRESSION: Mild degenerative changes in the lumbar spine. DATA REPOSITORY: RADIATION DOSE DELIVERED:
== END ==
PROVIDERS: PCP Family Medicine; Visit Provider Family Medicine
DX: M46.1 Sacroiliitis, not elsewhere classified; M47.816 Spondylosis without myelopathy or radiculopathy, lumbar region; L40.9 Psoriasis, unspecified
CPT/HCPCS: 72110; 72202

== ENCOUNTER 2022-02-25 01:22 | Outpatient (CLI) | payer BC, SELFPAY ==
[2022-02-25 17:10] LABS: ESR 2 mm/hr (0-15)
[2022-02-26 18:19] LABS: CRP, High Sensitivity 0.78 mg/L (See Note)
[2022-02-27 11:48] LABS: Lyme Ab w Rflx to Lyme Confirm Negative (Negative)
[2022-02-27 15:40] LABS: HLA-B27 Result Negative
[2022-02-28 03:02] LABS: Anaplasma phagocytophilum Negative (Negative); B. miyamotoi PCR Negative (Negative); Babesia divergens/MO-1 Negative (Negative); Babesia duncani Negative (Negative); Babesia microti Negative (Negative); Ehrlichia chaffeensis Negative (Negative); Ehrlichia ewingii/canis Negative (Negative); Ehrlichia muris eauclairensis Negative (Negative)
== END 2022-02-25 01:23 | disposition home or self-care (01) ==
LOC: LBO 01:22
PROVIDERS: PCP Family Medicine; Visit Provider Family Medicine
DX: M46.1 Sacroiliitis, not elsewhere classified (principal); M25.561 Pain in right knee; M25.562 Pain in left knee; M54.50 Low back pain, unspecified
CPT/HCPCS: 36415; 85652; 86141; 86812; 87798; 86618

== ENCOUNTER 2022-06-29 02:57 | Outpatient (CLI) | payer BC, SELFPAY ==
[2022-07-03 13:34] LABS: Testosterone, Free 21.1 ng/dL (4.26-16.4); Testosterone, Total 619 ng/dL (240-950)
== END 2022-06-29 02:58 | disposition home or self-care (01) ==
LOC: LOS 02:57
PROVIDERS: PCP Family Medicine; Visit Provider Family Medicine
DX: N52.8 Other male erectile dysfunction; E29.1 Testicular hypofunction; Z00.00 Encounter for general adult medical examination without abnormal findings
CPT/HCPCS: 36415; 84402; 84403

== ENCOUNTER 2022-08-14 02:34 | Outpatient (CLI) | payer BC, SELFPAY ==
[2022-08-18 14:21] LABS: ANA Interpretation Negative (Negative)
== END 2022-08-14 02:35 | disposition home or self-care (01) ==
LOC: LBO 02:35
PROVIDERS: PCP Family Medicine; Visit Provider Family Medicine
DX: M19.90 Unspecified osteoarthritis, unspecified site (principal); M54.59 Other low back pain; G89.29 Other chronic pain
CPT/HCPCS: 36415; 86038

== ENCOUNTER 2023-10-18 03:29 | Outpatient (CLI) | payer BC, SELFPAY ==
[2023-10-18 11:18] LABS: ESR 3 mm/hr (0-15)
[2023-10-18 17:33] LABS: Calculated LDL 142 mg/dL (<100); Cholesterol 219 mg/dL (<200); HDL Cholesterol 65 mg/dL (40-60); Triglyceride 60 mg/dL (<150)
[2023-10-18 18:13] LABS: C-Reactive Protein < 0.50 mg/dL (<or=0.5)
[2023-10-18 19:50] LABS: PSA, Screening 2.2 ng/mL (<=3.5)
[2023-10-19 20:34] LABS: Ferritin 237 ng/mL (26-388)
[2023-10-20 06:43] LABS: Lab Add On Test DONE
[2023-10-20 18:31] LABS: LH 2.6 mIU/mL (1.5-9.3); Prolactin 4.9 ng/mL (2.1-17.7)
[2023-10-25 16:12] LABS: Testosterone, Free 11.2 ng/dL (4.06-15.6); Testosterone, Total 378 ng/dL (240-950)
== END 2023-10-18 03:30 | disposition home or self-care (01) ==
LOC: LBO 03:29
PROVIDERS: PCP Family Medicine; Visit Provider Family Medicine
DX: E78.5 Hyperlipidemia, unspecified (principal); Z00.00 Encounter for general adult medical examination without abnormal findings; Z12.5 Encounter for screening for malignant neoplasm of prostate
CPT/HCPCS: 36415; 80061; 84153; 84402; 84403; 85652; 82728; 83002; 84146; 86140

== ENCOUNTER 2024-10-17 10:07 | Outpatient (CLI) | payer BC, SELFPAY ==
[2024-10-17 20:31] LABS: HIV-1/2 Ag & Ab Screen Negative (Negative)
[2024-10-17 20:35] LABS: Hepatitis C Ab w Rflx HCV PCR Negative (Negative)
[2024-10-17 20:38] LABS: HBs Antibody, Quant <3.1 mIU/mL (See Note); Hep B Surface Ab Negative (See Note); Hepatitis B Core Antibody Negative (Negative); Hepatitis B Surface Antigen Negative (Negative)
== END 2024-10-17 10:08 | disposition home or self-care (01) ==
LOC: LOS 10:08
PROVIDERS: PCP Family Medicine; Referring Provider Family Medicine; Visit Provider Family Medicine
DX: Z11.59 Encounter for screening for other viral diseases (principal); Z00.00 Encounter for general adult medical examination without abnormal findings; Z23 Encounter for immunization
CPT/HCPCS: 36415; 86704; 86706; 86803; 87340; 87389